=== PATIENT | female | born 1990 | race Two or more races ===

== ENCOUNTER 2021-01-08 10:52 | Inpatient (IN) | payer OTHER ==
[~2021-01-08] VITALS: Ht 167.6 cm; Wt 120.7 kg
[2021-01-08] MEDS ORDERED: LABETALOL HCL200 MG PO (10:55)
[2021-01-08] MEDS ORDERED: PRENATAL TABLE1 EAC1 PO (10:55)
== END 2021-01-13 18:35 | disposition home or self-care (01) | DRG 833 ==
LOC: OBS/DEL 10:52 → OB/GYN 15:50 → LDR 15:50 → OB/GYN 01-11 10:40
PROVIDERS: ADMIT Obstetrics & Gynecology; ATTEND Obstetrics & Gynecology
PROC: 4A1HXFZ Monitoring of Products of Conception, Cardiac Rhythm, External Approach (ICD-10-PCS; principal; 2021-01-08)
DX: O47.03 False labor before 37 completed weeks of gestation, third trimester (principal); O13.4 Gestational [pregnancy-induced] hypertension without significant proteinuria, complicating childbirth; O34.211 Maternal care for low transverse scar from previous cesarean delivery; Z3A.34 34 weeks gestation of pregnancy

== ENCOUNTER 2021-01-26 19:20 | Inpatient (IN) | payer OTHER ==
[~2021-01-26] VITALS: Ht 167.6 cm; Wt 2.7 kg
[~2021-01-26 19:20] MED LIST: LABETALOL HCL200 MG PO; PRENATAL TABLE1 EAC1 PO
[2021-01-26] MEDS ORDERED: LABETALOL HCL100 MG PO (19:31)
== END 2021-01-29 14:45 | disposition home or self-care (01) | DRG 787 ==
LOC: OBS/DEL 19:20 → LDR 01-27 03:55 → OB/GYN 01-27 03:55 → O/R 01-27 03:55 → OB/GYN 01-27 11:14
PROVIDERS: ADMIT Obstetrics & Gynecology; ATTEND Obstetrics & Gynecology
PROC: 4A1HXFZ Monitoring of Products of Conception, Cardiac Rhythm, External Approach (ICD-10-PCS; 2021-01-27)
PROC: 10D00Z1 Extraction of Products of Conception, Low, Open Approach (ICD-10-PCS; principal; 2021-01-27 07:00)
DX: O34.211 Maternal care for low transverse scar from previous cesarean delivery (principal); O10.02 Pre-existing essential hypertension complicating childbirth; Z3A.37 37 weeks gestation of pregnancy; Z37.0 Single live birth

== ENCOUNTER 2022-08-22 10:31 | Inpatient (IN) | payer OTHER ==
[~2022-08-22] VITALS: Ht 165.1 cm; Wt 4.1 kg
[~2022-08-22 10:31] MED LIST changes: +LABETALOL HCL100 MG PO
== END 2022-08-25 13:14 | disposition home or self-care (01) | DRG 785 ==
LOC: OB/GYN 10:31 → O/R 08-23 14:08 → OB/GYN 08-23 14:08
PROVIDERS: ADMIT Obstetrics & Gynecology; ATTEND Obstetrics & Gynecology
PROC: 0UB70ZZ Excision of Bilateral Fallopian Tubes, Open Approach (ICD-10-PCS; 2022-08-23)
PROC: 4A1HXCZ Monitoring of Products of Conception, Cardiac Rate, External Approach (ICD-10-PCS; 2022-08-23)
PROC: 10D00Z1 Extraction of Products of Conception, Low, Open Approach (ICD-10-PCS; principal; 2022-08-23 14:15)
DX: O16.4 Unspecified maternal hypertension, complicating childbirth (principal); O34.211 Maternal care for low transverse scar from previous cesarean delivery; Z3A.39 39 weeks gestation of pregnancy; Z37.0 Single live birth; Z30.2 Encounter for sterilization; Z20.822 Contact with and (suspected) exposure to COVID-19